=== PATIENT | female | born 1995 | race African-American/Black ===

== ENCOUNTER 2017-10-10 21:56 | Emergency (ER) | payer SELFPAY ==
[2017-10-12 04:13] LABS: Chlamydia by PCR Not Detected (NotDetected); GC by PCR Not Detected (NotDetected)
== END 2017-10-10 23:02 | disposition home or self-care (01) ==
LOC: ERS 21:56
DX: N89.8 Other specified noninflammatory disorders of vagina (principal)
CPT/HCPCS: 87480; 87491; 87510; 87591; 87660; 99284

== ENCOUNTER 2018-06-21 19:54 | Observation (INO) | payer OTHER ==
[2018-06-21 20:26] VITALS: BMI 41.2
[2018-06-21 21:09] LABS: #Basophils 0.1 thou/uL (0.0-0.2); #Eosinphils 0.1 thou/uL (0.0-0.7); #Lymphocytes 1.7 thou/uL (1.20-3.40); #Neutrophils 4.9 thou/uL (1.40-6.50); %Basophils 0.7 % (0.0-1.0); %Eosinophils 1.3 % (0.0-10.0); %Lymphocytes 22.2 % (21.0-51.0); %Monocytes 12.5 % (0.0-10.0); %Neutrophils 63.3 % (42.0-75.0); Hemoglobin 11.7 g/dL (12.0-16.0); Mean Corpuscular Hemoglobin 31.2 pg (27.0-31.0); Mean Corpuscular Volume 94.5 fL (78.0-98.0); Mean Platelet Volume 6.7 fL (7.4-10.4); Platelet Count 303 thou/uL (130-400); RBC Distribution Width 12.9 % (11.5-14.5); Red Blood Cell (RBC) Count 3.75 mill/uL (4.20-5.40); White Blood Cell (WBC) Count 7.8 thou/uL (4.8-10.8)
[2018-06-21] MEDS ORDERED: Promethazine HCl 25 MG/ML VIAL IM PRN (21:41)
[2018-06-21] MEDS ORDERED: Acetaminophen 500 MG TAB PO PRN (21:41)
[2018-06-21] MEDS ORDERED: Ondansetron PF 4 MG/2 ML Vial IVP PRN (21:41)
--- NOTE | 2018-06-21 22:42 | ULT ---
OBSTETRICAL ULTRASOUND 06/21/18 COMPARISON: None. HISTORY: Fall, vaginal spotting, 22-year-old female, 29 weeks gestation. TECHNIQUE: Multiplanar barraza scale sonographic imaging of the gravid uterus obtained. FINDINGS: Cervical length is approximately 2.8 cm. A single intrauterine gestation is present demonstrating a v ertex presentation and a heart rate of 135 beats per minute. The placenta is located anteriorly , demonstrating no evidence for previa or abruption. Amniotic fluid index is 12 cm. anatomy was not assessed on this exam. BIOMETRY: Biparietal diameter 7.7 cm 30 weeks, 6 days Head circumference 26.1 cm 28 weeks, 3 days Abdominal circumference 25.2 cm 29 weeks, 2 days Femur length 5.7 cm 30 weeks, 1 day Estimated age based on ultrasound is 29 weeks, 5 days with estimated date of delivery on 09/01/18. Anastasia mated weight is 1422 grams +/- 210 grams. IMPRESSION: Single intrauterine gestation. No acute findings. POS: [facility]
--- NOTE | 2018-06-22 01:12 | PDOC.EVN ---
Event Note - Event Note Event Note: Resting. No bleeding. FHTs stable, no significant UCs seen. USG shows vtx, biometry c/w dates, DOREEN= 12, ant. placenta w/o abruptio, cx. length= 2.8. Labs: RH+, KB is negative. Plan: Cont. OBs, will DC in AM.
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
[2018-06-22 08:55] VITALS: TEMP 98.6
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
== END 2018-06-22 10:35 | disposition home health service (06) ==
LOC: L&D/OP 19:54 → INTOOBSV 21:48 → L&D 21:48
PROVIDERS: ADMIT Obstetrics & Gynecology; ATTEND Obstetrics & Gynecology
DX: O26.853 Spotting complicating pregnancy, third trimester (principal); Z3A.29 29 weeks gestation of pregnancy; Z79.899 Other long term (current) drug therapy; W50.0XXA Accidental hit or strike by another person, initial encounter; W18.39XA Other fall on same level, initial encounter
CPT/HCPCS: 36415; 76805; 85025; 85460; 86850; 86900; 86901; 99285; G0378